=== PATIENT | male | born 1940 | race African-American/Black ===

== ENCOUNTER 2017-02-04 06:58 | Emergency (ER) | payer MEDICARE, MEDICAID ==
[~2017-02-04] VITALS: Ht 172.7 cm; Wt 80.0 kg
[2017-02-04] MEDS ORDERED: ACETAMINOPHEN 500MG TABLET PO ONE (08:00)
[2017-02-04 09:14] VITALS: BP 136/76
== END 2017-02-04 09:17 | disposition home or self-care (01) ==
LOC: ER 06:58
DX: M21.612 Bunion of left foot (principal); M79.675 Pain in left toe(s); I10 Essential (primary) hypertension; Z86.19 Personal history of other infectious and parasitic diseases; Z87.891 Personal history of nicotine dependence
CPT/HCPCS: 73630; 99284